=== PATIENT | male | born 1995 | race American Indian/Alaskan Native ===

== ENCOUNTER 2018-02-21 16:51 | Emergency (ER) | payer OTHER ==
[2018-02-21 17:01] VITALS: BP 99/65
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
[2018-02-21] MEDS ORDERED: NORCO 5/325 PO ONE (20:19)
[2018-02-21] MEDS ORDERED: FLEXERIL PO ONE (20:19)
== END 2018-02-21 20:40 | disposition home or self-care (01) ==
LOC: ED 16:51
DX: M79.1 Myalgia (principal); F17.200 Nicotine dependence, unspecified, uncomplicated; F12.10 Cannabis abuse, uncomplicated
CPT/HCPCS: 99282

== ENCOUNTER 2021-05-15 22:51 | Emergency (ER) | payer OTHER ==
[2021-05-15 23:04] VITALS: BP 124/87
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
[2021-05-16] MEDS ORDERED: ACETAMINOPHEN 325 MG TAB PO ONE (00:52)
== END 2021-05-16 01:20 ==
LOC: ED 22:51
DX: S20.212A Contusion of left front wall of thorax, initial encounter (principal); M54.2 Cervicalgia; M25.532 Pain in left wrist; F17.200 Nicotine dependence, unspecified, uncomplicated; F12.90 Cannabis use, unspecified, uncomplicated; Z79.899 Other long term (current) drug therapy; V87.7XXA Person injured in collision between other specified motor vehicles (traffic), initial encounter; Y93.89 Activity, other specified; Y92.488 Other paved roadways as the place of occurrence of the external cause; Y99.8 Other external cause status
CPT/HCPCS: 99283